=== PATIENT | female | born 1995 | race Caucasian/White ===

== ENCOUNTER 2017-05-16 11:03 | Emergency (ER) | payer BC | END 2017-05-16 12:55 | disposition home or self-care (01) | LOC: E/R 11:03 | DX: R21 Rash and other nonspecific skin eruption (principal) | CPT/HCPCS: 99283 ==

== ENCOUNTER 2017-06-28 08:31 | Emergency (ER) | payer BC | END 2017-06-28 11:37 | disposition home or self-care (01) | LOC: FTE 08:31 | DX: L01.00 Impetigo, unspecified (principal) | CPT/HCPCS: 99284 ==